=== PATIENT | male | born 1960 | race Caucasian/White ===

== ENCOUNTER 2018-01-17 09:47 | Emergency (ER) | payer OTHER, BC ==
[~2018-01-17] VITALS: Ht 180.3 cm; Wt 104.7 kg
[~2018-01-17 09:47] MED LIST: IBUPROFEN400 MG PO
[2018-01-17] MEDS ORDERED: PERCOCET 5/31 TABLET PO (13:09)
[2018-01-17] MEDS ORDERED: ERYTHROMYC1 APPLICAT LEFT EYE (13:09)
[2018-01-17 13:29] VITALS: BP 130/74
== END 2018-01-17 13:20 | disposition home or self-care (01) ==
LOC: EME 09:47
DX: T65.891A Toxic effect of other specified substances, accidental (unintentional), initial encounter (principal); T26.62XA Corrosion of cornea and conjunctival sac, left eye, initial encounter; Y99.0 Civilian activity done for income or pay; J44.9 Chronic obstructive pulmonary disease, unspecified; F32.9 Major depressive disorder, single episode, unspecified
CPT/HCPCS: 99281; 99284

== ENCOUNTER → 2018-07-16 | Outpatient (CLI) | payer OTHER ==
[~2018-07-16] MED LIST changes: +ERYTHROMYC1 APPLICAT LEFT EYE; +PERCOCET 5/31 TABLET PO
== END | disposition home or self-care (01) ==
LOC: RAD 14:06
DX: K86.9 Disease of pancreas, unspecified (principal); R18.8 Other ascites; K76.89 Other specified diseases of liver; M89.9 Disorder of bone, unspecified; I89.8 Other specified noninfective disorders of lymphatic vessels and lymph nodes; M54.41 Lumbago with sciatica, right side; M54.42 Lumbago with sciatica, left side
CPT/HCPCS: 72148; 74177

== ENCOUNTER → 2018-07-26 | Outpatient (CLI) | payer OTHER ==
[~2018-07-26] VITALS: Ht 180.3 cm; Wt 82.6 kg
[~2018-07-26] MED LIST changes: +BASAGLAR K100 UNIT/1 SC
== END | disposition home or self-care (01) ==
LOC: AMB 08:00
PROVIDERS: Internal Medicine Gastroenterology
DX: C25.1 Malignant neoplasm of body of pancreas (principal); R18.8 Other ascites; K80.20 Calculus of gallbladder without cholecystitis without obstruction; E11.9 Type 2 diabetes mellitus without complications; M54.41 Lumbago with sciatica, right side; Z79.84 Long term (current) use of oral hypoglycemic drugs; M54.42 Lumbago with sciatica, left side
CPT/HCPCS: 82948; 88108; 88305; 88307; 88341 TC; 88342 TC; 93005; J2250; J2405